=== PATIENT | female | born 1970 | race Two or more races ===

== ENCOUNTER 2016-05-12 16:23 | Emergency (ER) | payer MEDICAID ==
[~2016-05-12] VITALS: Ht 149.9 cm; Wt 99.3 kg
[2016-05-12 16:23] VITALS: BP 148/82
[2016-05-12] MEDS ORDERED: METF500T4 PO (16:26)
[2016-05-12] MEDS ORDERED: ACETAMINOPHEN 325 MG TABLET ONE (16:58)
[2016-05-12] MEDS ORDERED: ACETAMINOPHEN 325 MG TABLET PO ONE (17:00)
== END 2016-05-12 18:10 | disposition home or self-care (01) ==
LOC: ER 16:29
DX: S16.1XXA Strain of muscle, fascia and tendon at neck level, initial encounter (principal); V43.52XA Car driver injured in collision with other type car in traffic accident, initial encounter; Y93.89 Activity, other specified; Y92.413 State road as the place of occurrence of the external cause; Y99.8 Other external cause status; E11.9 Type 2 diabetes mellitus without complications; Z98.51 Tubal ligation status
CPT/HCPCS: 70450; 99284; A4606; Z7610